=== PATIENT | female | born 1980 | race African-American/Black ===

== ENCOUNTER 2017-07-04 13:16 | Emergency (ER) | payer SELFPAY ==
--- NOTE | 2017-07-04 14:28 | ER ---
Nurse's Notes [facility] Name: Jose E Burden Age: 36 yrs Sex: Female : 1980 Arrival Date: 07/04/2017 Time: 13:21 Bed 27 Private MD: Diagnosis: Presentation: 07/04 13:47 Presenting complaint: Patient states: i was D/C'd from [facility] for a suicidal hj treatment and schizophrenia; now i feel dizzy; denies nausea and vomiting;. Transition of care: patient was not received from another setting of care. Onset of symptoms was July 04, 2017. Initial Sepsis Screen: Does the patient meet any 2 criteria? No. Patient's initial sepsis screen is negative. Does the patient have a suspected source of infection? No. Patient's initial sepsis screen is negative. Care prior to arrival: None. 13:47 Method Of Arrival: Ambulatory 13:47 Acuity: FANTA 3 hj Triage Assessment: 13:49 General: Appears in no apparent distress. uncomfortable, Behavior is calm, cooperative, hj appropriate for age. Pain: Denies pain. GI: No signs and/or symptoms were reported involving the gastrointestinal system. 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 Denies injuries from another. Nutritional lk1 screening: No deficits noted. Tuberculosis screening: No symptoms or risk factors identified. Fall Risk None identified. Assessment: 13:49 GI: Bowel sounds present X 4 quads. Abd is soft and non tender. hj 14:23 Reassessment: Patient refused treatment stating she thought she was feeling bad because lk1 of the medications she got at another facility and left AMA without signing forms. Vital Signs: 13:49 BP 98 / 75; Pulse 115; Resp 18; Temp 97.8(TE); Pulse Ox 98% on R/A; Weight 108.86 kg; hj Height 5 ft. 2 in. (157.48 cm); Pain 0/10; 13:49 Body Mass Index 43.90 (108.86 kg, 157.48 cm) ED Course: 13:21 Patient arrived in ED. mr 13:48 Triage completed. hj 13:49 Arm band placed on left wrist. 13:53 Ziggy Byrne PA is PHCP. 13:53 Cedrick Patel MD is Attending Physician. cp 14:00 Nydia Taveras, RN is Primary Nurse. lk1 14:26 Patient has correct armband on for positive identification. Bed in low position. Call lk1 light in reach. 14:26 No provider procedures requiring assistance completed. Patient did not have IV access lk1 during this emergency room visit. Administered Medications: No medications were administered Outcome: 14:26 AMA Left before signing form. lk1 14:26 unknown 14:26 Discharge instructions given to patient, Instructed on follow up and referral plans. 14:28 Patient left the ED. lk1 Signatures: Telma Alva mr DuffyBashir RN RN Ziggy Byrne PA PA cp Nydia Taveras, RN RN lk1 Corrections: (The following items were deleted from the chart) 13:52 13:49 Pulse 115bpm; Resp 18bpm; Pulse Ox 98% RA; Temp 97.8F Temporal; 108.86 kg; Height hj 5 ft. 2 in.; BMI: 43.9; Pain 0/10; hj
--- NOTE | 2017-07-04 14:28 | EDPHYS ---
Physician Documentation [facility] Name: Jose E Burden Age: 36 yrs Sex: Female : 1980 Arrival Date: 07/04/2017 Time: 13:21 Bed 27 Private MD: ED Physician Cedrick Patel HPI: 07/04 14:00 This 36 yrs old Black Female presents to ER via Ambulatory with complaints of cp Dizziness, Abdominal Pain. 14:00 The patient presents with drowsiness. Onset: The symptoms/episode began/occurred today. cp Associated signs and symptoms: Pertinent positives: abdominal pain yesterday, denies current abdominal pain. Patient's baseline: Neuro: alert and fully oriented, Motor: no deficits, Ambulation: walks without assistance, Speech: normal. Patient reports recent release from [facility]. Given injection of Invega medication prior to release. 14:00 Patient states she was released this morning from [facility]. 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 cp 14:05 Eyes: Negative for injury, pain, redness, and discharge. cp 14:05 ENT: Negative for drainage from ear(s), ear pain, sore throat, difficulty swallowing, difficulty handling secretions. 14:05 Neck: Negative for pain with movement, pain at rest, stiffness. 14:05 Cardiovascular: Negative for chest pain, edema, palpitations. 14:05 Respiratory: Negative for cough, shortness of breath, wheezing. 14:05 Abdomen/GI: Negative for abdominal pain, nausea, vomiting, and diarrhea, constipation, anorexia, black/tarry stool, rectal bleeding. 14:05 Back: Negative for pain at rest, pain with movement. 14:05 : Negative for urinary symptoms, vaginal bleeding, vaginal discharge. 14:05 Skin: Negative for cellulitis, rash. 14:05 Neuro: Positive for dizziness, Negative for altered mental status, headache, speech changes, weakness. 14:05 All other systems are negative. Exam: 14:10 Head/Face: Normocephalic, atraumatic. cp 14:10 Constitutional: The patient appears in no acute distress, alert, awake, non-diaphoretic, non-toxic, well developed, well nourished, unkempt. 14:10 Eyes: Periorbital structures: appear normal, Pupils: equal, round, and reactive to light and accomodation, Extraocular movements: intact throughout, Conjunctiva: exudate, injected, Lids and lashes: appear normal, bilaterally. 14:10 ENT: External ear(s): are unremarkable, Ear canal(s): are normal, clear, TM's: bulging, is not appreciated, bilaterally, dullness, bilaterally, erythema, is not appreciated, bilaterally, Nose: is normal, Mouth: Lips: moist, Oral mucosa: pink and intact, moist, Voice: is normal. 14:10 Neck: ROM/movement: is normal, is supple, without pain, no range of motions limitations, no meningismus, no nuchal rigidity. 14:10 Chest/axilla: Inspection: normal, Palpation: is normal, no crepitus, no tenderness. 14:10 Cardiovascular: Rate: tachycardic, Rhythm: regular. 14:10 Respiratory: the patient does not display signs of respiratory distress, Respirations: normal, no use of accessory muscles, no retractions, no splinting, no tachypnea, labored breathing, is not present, Breath sounds: are clear throughout, no decreased breath sounds, rhonchi, no stridor. 14:10 Abdomen/GI: Inspection: obese Bowel sounds: normal, Palpation: abdomen is soft and non-tender, in all quadrants. 14:10 Back: pain, is absent, ROM is normal. 14:10 Skin: cellulitis, is not appreciated, no rash present. 14:10 Neuro: Orientation: to person, place, time \T\ situation. Mentation: is normal, Cerebellar function: is grossly normal, Motor: moves all fours, strength is normal, Sensation: no obvious gross deficits. Vital Signs: 13:49 BP 98 / 75; Pulse 115; Resp 18; Temp 97.8(TE); Pulse Ox 98% on R/A; Weight 108.86 kg; hj Height 5 ft. 2 in. (157.48 cm); Pain 0/10; 13:49 Body Mass Index 43.90 (108.86 kg, 157.48 cm) MDM: 13:53 Patient medically screened. cp 07/04 14:26 Order name: Urine Dipstick--Ancillary (enter results); Complete Time: 01:20 ag 07/04 14:26 Order name: Urine --Ancillary (enter results) ag 07/04 14:09 Order name: Urine Dipstick-Ancillary (obtain specimen); Complete Time: 14:22 cp 07/04 14:09 Order name: Urine Test (obtain specimen); Complete Time: 14:22 cp Administered Medications: No medications were administered Disposition: 07/05 07:09 Co-signature as Attending Physician, Cedrick Patel MD I agree with the assessment and wa plan of care. Disposition: 07/04/17 14:27 Patient has left against medical advice. - Patients states they are going to Home. - Condition is Undetermined. Signatures: Dispatcher [employer] EDMS Bashir Duffy RN RN Ziggy Byrne PA PA cp Kluge, Leah, RN RN lk1 Cedrick Patel MD MD wa Corrections: (The following items were deleted from the chart) 07/04 14:23 14:02 Orthostatics ordered. cp lk1 14: 14:02 EKG - Nurse/Tech ordered. cp lk1 14:28 14:27 07/04/2017 14:27 Patients has left against medical advice. Patient states they lk1 are going to Home. Condition is Undetermined. lk1
[2017-07-04 15:04] LABS: Urine Blood 3+ (NEG); Urine Glucose NEGATIVE (NEG); Urine Protein TRACE (NEG); Urine pH 5.5 (5.0-7.0)
== END 2017-07-04 14:28 | disposition left against medical advice (07) ==
LOC: ER 13:16
DX: Z53.21 Procedure and treatment not carried out due to patient leaving prior to being seen by health care provider (principal); R42 Dizziness and giddiness; R10.9 Unspecified abdominal pain
CPT/HCPCS: 81003; 81025; 99281

== ENCOUNTER 2017-07-09 11:30 | Emergency (ER) | payer SELFPAY ==
--- OUTSIDE RECORDS SUMMARY | 2017-07-09 11:33 | XMS REPORT | Clinical Summary ---
:1980 Author Organization [facility] Address [address] [place] [address] Care Team Providers Name Role Phone Asked, No Pcp Primary Care Provider Unavailable Allergies Active Allergy Reactions Severity Noted Date Comments Ibuprofen 05/29/2017 Current Medications Prescription Sig. Disp. Refills Start Date End Date Status doxazosin (CARDURA) 2 MG Take 1 tablet 30 tablet 0 06/04/2017 tabletIndications: (2 mg total) 8 Hypertension by mouth nightly for 30 days. atorvastatin (LIPITOR) 10 Take 1 tablet 30 tablet 0 06/04/2017 MG tabletIndications: (10 mg total) 8 Hypercholesterolemia by mouth nightly for 30 days. risperiDONE (RisperDAL) 1 Take 1 tablet 60 tablet 0 06/04/2017 MG tabletIndications: (1 mg total) 8 possible psychosis by mouth 2 (two) times a day for 30 days. cephalexin (KEFLEX) 500 MG Take 1 32 capsule 0 06/04/2017 capsuleIndications: capsule (500 8 infection mg total) by mouth 2 (two) times a day for 16 days. sertraline (ZOLOFT) 50 MG Take 1 tablet 30 tablet 0 06/05/2017 tabletIndications: Anxiety (50 mg total) 8 with Depression by mouth daily for 30 days. traZODone (DESYREL) 50 MG Take 1 tablet 30 tablet 0 06/04/2017 tabletIndications: (50 mg total) 8 insomnia associated with by mouth depression nightly for 30 days. nicotine (NICODERM CQ) 21 Place 1 patch 30 patch 0 06/04/2017 mg/24 hrIndications: on the skin 8 Smoking Cessation daily as needed (Cravings) for up to 30 days. Active Problems Problem Noted Date Cocaine abuse 05/29/2017 Encounters Date Type Specialty Care Team Description 05/29/2017 - Hospital Encounter Psychiatry Nola Snyder, 06/05/2017 Deondre Chu MD 05/29/2017 Emergency Emergency Medicine after 2016 Social History Tobacco Use Types Packs/Day Years Used Date Current Every Day Smoker Cigarettes 10 Smokeless Tobacco: Never Used Tobacco Cessation: Ready to Quit: Yes; Counseling Given: Yes Alcohol Use Drinks/Week oz/Week Comments Yes Sex Assigned at Date Recorded Not on file Last Filed Vital Signs Vital Sign Reading Time Taken Blood Pressure 110/75 06/05/2017 5:44 AM CDT Pulse 82 06/05/2017 5:44 AM CDT Temperature 36.7 C (98 F) 06/05/2017 5:44 AM CDT Respiratory Rate 18 06/04/2017 7:16 PM CDT Oxygen Saturation 98% 06/05/2017 5:44 AM CDT Inhaled Oxygen Concentration - - Weight 113 kg (248 lb 11.2 oz) 06/05/2017 5:44 AM CDT Height 157.5 cm (5' 2") 05/31/2017 1:00 AM CDT Body Mass Index 45.49 06/05/2017 5:44 AM CDT Plan of Treatment Not on file Results ECG 12 lead (05/30/2017 7:43 AM) Component Value Ref Range Ventricular rate 94 Atrial rate 94 SC interval 168 QRSD interval 78 QT interval 360 QTC interval 450 P axis 1 66 QRS axis 1 11 T wave axis 25 EKG impression Normal sinus rhythm-Cannot rule out Anterior infarct , age undetermined-Abnormal ECG-No previous ECGs available- Specimen Performing Laboratory [facility] [place] [place] [address] [place] [address] Hemoglobin A1c (05/29/2017 10:46 PM) Component Value Ref Range Hemoglobin A1C 5.2 4.0 - 5.6 % Comment: HbA1c cutoffs for diagnosing diabetes: 4.0% - 5.6%=normal 5.7% - 6.4%=increased risk for diabetes (prediabetes) >=6.5%=diabetes Goals for glycemic control (ADA 2016) < 7.0%Target for non adults with diabetes. More or less stringent targets may be appropriate for individual patients. <7.5% Target for Children and adolescents with type 1 diabetes. Specimen Performing Laboratory Blood [facility] OF [facility]OLOGY [facility] GENOMIC MEDICINE [address] [place] [id number] Lipid panel (05/29/2017 10:09 PM) Component Value Ref Range Cholesterol 156 <200 mg/dL Triglycerides 73 <150 mg/dL HDL cholesterol 56 >40 mg/dL LDL cholesterol 94Comment: Result obtained by direct LDL <100 mg/dL measurement Lipid panel interpretation SeeBelow Comment: Total Cholesterol (mg/dL) <200 Desirable 222-299Yvgwnlxghe-seif >=240High Triglycerides (mg/dL) <150 Normal 796-581Sbmtbgeamp-rvyk 200-499High >=500Very high HDL Cholesterol (mg/dL) <40Low (male) <40Low (female) LDL Cholesterol (mg/dL) <100 Optimal 100-129Near or above optimal 402-112Xvvmwsfcdn-iqak 160-189High >=190Very high Risk Catergories that modify LDL goals. Risk CatergoriesLDL goal (mg/dL) CHD and CHD risk equivalent<100 (10-year risk >20%) Multiple (2+) risk factors <130 (10-year risk=<20%) 0-1 risk factors <160 (<10-year risk) Defining levels of lipids in metabolic syndrome Triglycerides>=150 mg/dL HDL Cholesterol Men<40 mg/dL Women<40 mg/dL Non-HDL cholesterol is a second target for therapy in persons with high triglycerides (>=200 mg/dL) Specimen Performing Laboratory Plasma specimen [facility] OF PATHOLOGY AND GENOMIC MEDICINE [address] [place] [phone] after 2016 Insurance Payer Benefit Plan / Group Subscriber ID Type Phone Address PENDING MEDICAID PENDING DISABILITY MEDICAID xxxxxxxxx Medicaid COVERAGE
--- OUTSIDE RECORDS SUMMARY | 2017-07-09 11:33 | XMS REPORT ---
:1980 Author Organization [facility] Address [address] [place] [address] [address] [place] [address] Care Team Providers Name Role Phone UNKNOWN, REFFERING Primary Care Provider Unavailable MARITZA CAVAZOS M.D. Unavailable Unavailable Problems This patient has no known problems. Allergies, Adverse Reactions, Alerts This patient has no known allergies or adverse reactions. Medications This patient has no known medications. Encounters Start End Encounter Admission Attending Care Care Encounter Date/Time Date/Time Type Type Clinicians Facility Department ID 2017-06-27 2017-06-27 [id number]:45:00 00:45:00 Yimi SALAS 2017-05-04 2017-05-22 [facility] [id number] 02:55:00 13:21:00 Yimi SALAS Results Test Description Test Time Test Comments Text Results Atomic Results Result Comments RPR, Qual 2017-06-29 03:23:00 Test Item Value Reference Range Comments RPR (test code=RPR) Non-Reactive Non-Reactive Urinalysis [id number] 02:28:00 Test Item Value Reference Range Comments Color (test code=COLOR) Yellow Yellow,Straw,Pl yellow Clarity (test code=CLAR) Clear Clear Specific [place] (test code=SPGR) 1.013 1.001-1.035 pH (test code=PH) 6.5 5.0-9.0 Ketone (test code=KET) Negative mg/dL Negative Glucose (test code=GLUCUR) Negative mg/dL Negative Protein (test code=PROT) Negative mg/dL Negative Bilirubin (test code=BILI) Negative mg/dL Negative Occult Blood (test code=UDOB) Negative Negative Urobilinogen (test code=UROB) 0.2 mg/dL 0.2-1.0 Nitrite (test code=NIT) Negative Negative Leuk Esterase (test code=LEUK) Small Negative Micros Exam (test code=MEXAM) Indicated Epithelial Cells (test code=EPI) 30-49 /LPF 0-30 WBC, Urine (test code=UWBC) 0-1 /HPF 0-5 RBC, Urine (test code=URBC) None Seen /HPF 0-5 Bacteria (test code=BACT) Few /HPF Comprehensive Metabolic [id number] 02:24:00 Test Item Value Reference Range Comments Sodium (test code=NA) 136 mmol/L 135-145 Potassium (test code=K) 4.4 mmol/L 3.5-5.1 Chloride (test code=CL) 98 mmol/L 98-105 Carbon Dioxide (test 26 mmol/L 22-29 code=CO2) Glucose (test code=GLU) 117 mg/dL 70-115 Blood Urea Nitrogen 13 mg/dL 6-20 (test code=BUN) Creatinine (test 1.0 mg/dL 0.5-0.9 code=CREAT) Calcium (test code=CA) 8.9 mg/dL 8.3-10.5 Prot Total (test 6.9 g/dL 6.4-8.3 code=TP) Albumin (test code=ALB) 4.0 g/dL 3.5-5.2 A/G Ratio (test 1.4 Ratio code=AGRATIO) Globulin (test 2.9 2.9-3.1 code=GLOB) Bili Total (test 0.2 mg/dL 0.1-0.9 code=TBIL) Alk Phos (test 106 U/L 35-104 code=APHOS) AST (test code=AST) 17 U/L 1-32 ALT (test code=ALT) 13 U/L 1-33 BUN/Creatinine Ratio 13.0 (test code=BCRATIO) Anion Gap (test 12 mmol/L 7-16 code=AGAP) Estimated GFR (test >60 mL/min/1.73m2 eGFR (estimated Glomerular code=GFR) Filtration Rate) is an estimated value,calculated from the patient's serum creatinine using the MDRD equation.It is NOT the patient's actual GFR. The eGFR provides a more clinicallyuseful measure of kidney disease than serum creatinine alone.This calculation takes sex and race into account, if the informationis provided. If the race is not provided, and the patient isAfrican-Mauritanian, multiply by 1.212. If sex is not provided, and thepatient is female, multiply by 0.742. Results for patients <18 years ofage have not been validated by the MDRD study and should be interpretedwith caution.eGFR Result Interpretation:eGFR > or=60 is in the Normal RangeeGFR < 60 may mean kidney diseaseeGFR < 15 may mean kidney failureRanges recommended by the National Kidney Foundation,http://nkdep.nih .gov [id number] 02:02:00 Test Item Value Reference Range Comments Amphetamine (test code=AMPH) Negative Negative For diagnostic purposes only, positive results should always be assessedin conjunctionwith the patient's medical history,clinical examination and otherfindings.To fulfill legal requirements, a more specific alternate chemical methodmust be used inorder to obtain a Confirmed analytical result. GC/MS is the preferred confirmatory method. Barbiturates (test code=LUKAS) Negative Negative Benzodiazepine (test Negative Negative code=ANTON) Cocaine (test code=COCA) POSITIVE Negative Methadone (test code=MTHD) Negative Negative Opiates (test code=OPIA) Negative Negative PCP (test code=PCP) Negative Negative Propoxyphene (test Negative Negative code=PROPOX) THC (test code=THC) Negative Negative Alcohol, Urine (test <0.01 g/dL 0.00-0.01 code=ETOHU) CBC with [id number] 01:52:00 Test Item Value Reference Range Comments WBC (test code=WBC) 8.7 K/cumm 4.4-10.5 RBC (test code=RBC) 4.24 M/cumm 3.75-5.20 Hemoglobin (test code=HGB) 12.3 gm/dL 12.2-14.8 Hematocrit (test code=HCT) 39.7 % 36.5-44.4 MCV (test code=MCV) 93.5 fL 80-100 MCH (test code=MCH) 29.1 pg 27.0-32.5 MCHC (test code=MCHC) 31.1 g/dL 32.0-37.5 RDW (test code=RDW) 14.3 % 11.5-14.5 Platelet Count (test code=PLTCT) 275 K/cumm 140-440 MPV (test code=MPV) 10.2 fL Diff Method (test code=DIFFM) Auto Neutrophil (test code=NEUT) 65.7 % 36-70 Lymphocyte (test code=LYMPH) 27.6 % 12-44 Monocyte (test code=MONO) 3.1 % 0-11 Eosinophil (test code=EOS) 3.3 % 0-7 Basophil (test code=BASO) 0.5 % 0-2 Neutro Abs (test code=ANEUT) 5.7 K/cumm 1.6-7.4 Lymph Abs (test code=ALYMPH) 2.4 K/cumm 0.5-4.6 [place] Abs (test code=AMONO) 0.3 K/cumm 0.0-1.2 Eos Abs (test code=AEOS) 0.29 K/cumm 0.00-0.74 Baso Abs (test code=ABASO) 0.0 K/cumm 0.00-0.21 RPR, [id number] 03:10:00 Test Item Value Reference Range Comments RPR (test code=RPR) Non-Reactive Non-Reactive Urinalysis [id number] 11:22:00 Test Item Value Reference Range Comments Color (test code=COLOR) Yellow Yellow,Straw,Pl yellow Clarity (test code=CLAR) Clear Clear Specific [place] (test code=SPGR) 1.016 1.001-1.035 pH (test code=PH) 5.0 5.0-9.0 Ketone (test code=KET) Negative mg/dL Negative Glucose (test code=GLUCUR) Negative mg/dL Negative Protein (test code=PROT) Negative mg/dL Negative Bilirubin (test code=BILI) Negative mg/dL Negative Occult Blood (test code=UDOB) Negative Negative Urobilinogen (test code=UROB) 0.2 mg/dL 0.2-1.0 Nitrite (test code=NIT) Negative Negative Leuk Esterase (test code=LEUK) Negative Negative Micros Exam (test code=MEXAM) Not indicated BHCG, Serum, [id number] 10:27:00 Test Item Value Reference Range Comments Preg Qual [Se] (test code=BSHCG) Negative Negative Lipid [id number] 10:05:00 Test Item Value Reference Range Comments Cholesterol (test 167 mg/dL 0-200 code=CHOL) Triglycerides (test 46 mg/dL 9-200 code=TRIG) HDL (test code=HDL) 65 mg/dL 50-60 Chol/HDL (test 2.6 Ratio 0.0-4.4 code=CHOLPHDL) LDL, Calculated (test 93 0-130 (NOTE)RISK OF HEART code=LDLC) DISEASEPublished by [place] Heart AssociationAnalyte Optimal Boderline Increased RiskCHOL <200 200-239 >240TRIG <150 150-199 >200HDL Male: >60 <40HDL Female: >60 <50LDL <100 130-159 >160LDL NEAR OPTIMAL IS 100-129 VLDL (test code=VLDL) 9 mg/dL 5-40 LDL/HDL (test code=LDLPHDL) 1 RPR, [id number] 10:46:00 Test Item Value Reference Range Comments RPR (test code=RPR) Non-Reactive Non-Reactive Thyroid Stimulating Hormone (TSH)2017-05-04 07:15:00 Test Item Value Reference Range Comments TSH (test code=TSH) 1.04 mIU/mL 0.270-4.200 Lipid [id number] 07:07:00 Test Item Value Reference Range Comments Cholesterol (test 132 mg/dL 0-200 code=CHOL) Triglycerides (test 59 mg/dL 9-200 code=TRIG) HDL (test code=HDL) 61 mg/dL 50-60 Chol/HDL (test 2.2 Ratio 0.0-4.4 code=CHOLPHDL) LDL, Calculated (test 59 0-130 (NOTE)RISK OF HEART code=LDLC) DISEASEPublished by [place] Heart AssociationAnalyte Optimal Boderline Increased RiskCHOL <200 200-239 >240TRIG <150 150-199 >200HDL Male: >60 <40HDL Female: >60 <50LDL <100 130-159 >160LDL NEAR OPTIMAL IS 100-129 VLDL (test code=VLDL) 12 mg/dL 5-40 LDL/HDL (test code=LDLPHDL) 1 POC Glucose, [id number] 04:42:00 Test Item Value Reference Range Comments POC Glucose (test 84 mg/dL 70-115 If you consider your patient code=POCGLUC) critically ill, the Alisa Accu-Chek InformII metershould not be used for Glucose determinations.Draw a venous Glucose and send to the Main Lab for Analysis.
[2017-07-09] MEDS ORDERED: ONDANSETRON 4 MG/2 ML VIAL ONE (12:14)
[2017-07-09] MEDS ORDERED: NA CHLORIDE 0.9% 1,000 ML ONE (12:14)
[2017-07-09 12:28] LABS: Absolute Lymphocytes (CBC) 2.5 K/uL (0.7-4.9); Absolute Monocytes 0.5 K/uL (0.1-1.3); Absolute Neutrophil 3.3 K/uL (1.8-8.0); Eosinophils % 4.5 % (0-4.4); Hematocrit 36.1 % (36.0-45.0); Lymphocytes % 36.7 % (15.3-44.8); MCH 29.6 pg (27.0-35.0); MCV 92.1 fL (80-100); RBC Red Blood Cell Count 3.92 M/uL (3.86-4.86)
[2017-07-09 12:31] LABS: Bicarbonate 26 mEq/L (21-31); Glucose Level 87 mg/dL (65-120); Lipase 16 U/L (22-51); Potassium 4.2 mEq/L (3.6-5.0); Sodium Level 137 mEq/L (135-145)
[2017-07-09 12:37] LABS: ALT/SGPT 15 IU/L (10-60); AST/SGOT 18 IU/L (10-42); Albumin 3.2 g/dL (3.2-5.5); Alkaline Phosphatase 92 IU/L (42-121); Amylase Level 108 U/L (28-100); BUN Blood Urea Nitrogen 13 mg/dL (6-20); Bilirubin Direct < 0.1 mg/dL (0-0.2); Bilirubin Total 0.2 mg/dL (0.3-1.2); Protein, Total 6.6 g/dL (6.0-8.3)
[2017-07-09 13:13] LABS: Urine Blood TRACE (NEG); Urine Glucose NEGATIVE (NEG); Urine Protein NEGATIVE (NEG); Urine pH 5.5 (5.0-7.0)
--- NOTE | 2017-07-09 13:48 | EDPHYS ---
Physician Documentation [facility] Name: Jose E Burden Age: 37 yrs Sex: Female : 1980 Arrival Date: 07/09/2017 Time: 11:33 Bed 24 Private MD: ED Physician Ziggy Hou HPI: 07/09 11:42 This 37 yrs old Black Female presents to ER via EMS with complaints of Abdominal Pain. cp 07/08 11:42 Onset: The symptoms/episode began/occurred 2 day(s) ago. cp 11:42 The symptoms do not radiate. Associated signs and symptoms: Pertinent positives: nausea cp and vomiting, diarrhea, Pertinent negatives: blood in stools, constipation, dysuria, fever, headache, vaginal discharge. 07/09 11:42 The patient presents with abdominal pain in the left lower quadrant. 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 - Social history:: Smoking status: Patient uses tobacco products, smokes one-half pack cigarettes per day. ROS: 11:55 Constitutional: Negative for body aches, chills, fever, poor PO intake. cp 11:55 Eyes: Negative for injury, pain, redness, and discharge. cp 11:55 ENT: Negative for drainage from ear(s), ear pain, sore throat, difficulty swallowing, difficulty handling secretions. 11:55 Cardiovascular: Negative for chest pain, edema, palpitations. 11:55 Respiratory: Negative for cough, shortness of breath, wheezing. 11:55 Abdomen/GI: Positive for abdominal pain, of the left lower quadrant, Negative for diarrhea, constipation, anorexia, black/tarry stool, rectal bleeding. 11:55 Back: Negative for pain at rest, pain with movement, radiated pain. 11:55 : Negative for urinary symptoms, flank pain, vaginal bleeding, vaginal discharge. 11:55 Skin: Negative for cellulitis, rash. 11:55 Neuro: Negative for altered mental status, headache, weakness. 11:55 All other systems are negative. Exam: 12:00 Constitutional: The patient appears in no acute distress, alert, awake, non-toxic, well cp developed, well nourished. 12:00 Head/Face: Normocephalic, atraumatic. cp 12:00 Eyes: Periorbital structures: appear normal, Conjunctiva: normal, no exudate, no injection, Sclera: no appreciated abnormality, Lids and lashes: appear normal, bilaterally. 12:00 ENT: External ear(s): are unremarkable, Nose: is normal, Mouth: Lips: moist, Oral mucosa: pink and intact, moist, Posterior pharynx: is normal, airway is patent, no erythema, no exudate. 12:00 Neck: ROM/movement: is normal, is supple, without pain, no range of motions limitations, no nuchal rigidity. 12:00 Chest/axilla: Inspection: normal, Palpation: is normal, no crepitus, no tenderness. 12:00 Cardiovascular: Rate: tachycardic, Rhythm: regular. 12:00 Respiratory: the patient does not display signs of respiratory distress, Respirations: normal, no use of accessory muscles, no retractions, no splinting, no tachypnea, labored breathing, is not present, Breath sounds: are clear throughout, no decreased breath sounds, no stridor, no wheezing. 12:00 Abdomen/GI: Inspection: abdomen appears normal, Bowel sounds: active, all quadrants, Palpation: soft, in all quadrants, mild abdominal tenderness, rebound tenderness, is not appreciated, voluntary guarding, is not appreciated, involuntary guarding, is not appreciated. 12:00 Back: CVA tenderness, is absent. 12:00 Skin: cellulitis, is not appreciated, no rash present. Vital Signs: 11:40 BP 110 / 59; Pulse 101; Resp 18; Temp 98.2(O); Pulse Ox 99% on R/A; Weight 108.86 kg; aj1 Height 5 ft. 2 in. (157.48 cm); Pain 7/10; 13:46 BP 122 / 65; Pulse 88; Resp 18; Pulse Ox 99% ; aj1 11:40 Body Mass Index 43.90 (108.86 kg, 157.48 cm) aj1 MDM: 11:35 Patient medically screened. cp 13:43 Data reviewed: vital signs, nurses notes, lab test result(s). cp 13:43 Differential diagnosis: diverticulitis, gastritis, Ovarian Torsion, Pelvic Inflammatory cp Disease, Pyelonephritis, Ureterolithiasis, urinary tract infection. 13:44 Refusal of service: The patient/guardian displays adequate decision making capability and despite a detailed discussion of alternatives, benefits, risks, and consequences refuses: to wait for results of CT abdomen/pelvis. Patient understands risk if CT results are positive for acute abdomen. Requests to be notified at [facility]. 07/09 11:45 Order name: Amylase, Serum; Complete Time: 13:19 cp 07/09 11:45 Order name: Basic Metabolic Panel; Complete Time: 13:19 cp 07/09 11:45 Order name: CBC with Diff; Complete Time: 12:32 cp 07/09 12:33 Interpretation: Normal except: HGB 11.6; EOSINOPHIL % 4.5. cp 07/09 11:45 Order name: Creatinine for Radiology; Complete Time: 12:32 cp 07/09 11:45 Order name: Hepatic Function; Complete Time: 13:19 cp 07/09 11:45 Order name: Lipase; Complete Time: 13:19 cp 07/09 12:33 Interpretation: LIP 16; Reviewed. 07/09 11:45 Order name: Urine Test (obtain specimen); Complete Time: 13:29 cp 07/09 11:45 Order name: Urine Microscopic Only; Complete Time: 20:09 cp 07/09 11:45 Order name: IV Saline Lock; Complete Time: 12:20 cp 07/09 11:45 Order name: CT Abd/Pelvis - W/Contrast: no oral contrast; Complete Time: 20:09 cp 07/09 12:46 Order name: Urine Dipstick--Ancillary (enter results); Complete Time: 13:19 ag 07/09 12:46 Order name: Urine --Ancillary (enter results); Complete Time: 13:19 ag 07/09 11:45 Order name: Labs collected and sent; Complete Time: 12:20 cp 07/09 11:45 Order name: Urine Dipstick-Ancillary (obtain specimen); Complete Time: 13:29 cp Administered Medications: 12:20 Drug: Zofran 4 mg Route: IVP; Site: right antecubital; aj1 12:20 Drug: NS 0.9% 1000 ml Route: IV; Rate: 1 bolus; Site: right antecubital; aj1 Disposition: 07/10 07:01 Co-signature as Attending Physician, Ziggy Hou MD I agree with the assessment and jorge luis plan of care. Disposition: 07/09/17 13:47 Patient has left against medical advice. Impression: Lower abdominal pain, unspecified. - Patients states they are going to Home. - Condition is Stable. Follow up: Emergency Department; When: As needed; Reason: Worsening of condition. - Problem is new. - Symptoms have improved. Signatures: Dispatcher [employer] EDJane Elliott, HERMES RN aj1 Ziggy Hou MD MD cha Gallardo, Ana ag Page, Corey, PA PA cp Corrections: (The following items were deleted from the chart) 07/09 13:55 13:47 07/09/2017 13:47 Patients has left against medical advice. Impression: Lower ag abdominal pain, unspecified. Patient states they are going to Home. Condition is Stable. Follow up: Emergency Department; When: As needed; Reason: Worsening of condition. Problem is new. Symptoms have improved. cp
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
[2017-07-09 13:55] LABS: Urine Bacteria <20 /HPF (<20); Urine Culture Reflex Order NOT NEEDED; Urine RBC <5 /HPF (NONE SEEN); Urine Yeast FEW (NONE SEEN)
--- NOTE | 2017-07-09 14:06 | RAD REPORT ---
EXAM DESCRIPTION: CT - Abdomen Pelvis W Contrast - 07/09/2017 1:06 pm CLINICAL HISTORY: Abdominal pain/left lower quadrant pain with vomiting and diarrhea COMPARISON: none. TECHNIQUE: Computed axial tomography of the abdomen pelvis was obtained. 100 cc Isovue-300 was admin istered intravenously. Oral contrast was not requested which limits evaluation of bowel. All CT scans are performed using dose optimization technique as appropriate and may include automated exposure control or mA/KV adjustment according to patient size. FINDINGS: The liver is a 6 millimeter low-density areas present within the right lobe of the liver . Spleen, pancreas, adrenal and kidneys appear unremarkable. There is no evidence of diverticulitis. The appendix is normal An adnexal mass is not seen IMPRESSION: A 6 millimeter low-density area within the liver is nonspecific. Most likely it is benig n. Follow up ultrasound in 3 months would be helpful for re-evaluation
== END 2017-07-09 13:55 | disposition left against medical advice (07) ==
LOC: ER 11:30
DX: R10.32 Left lower quadrant pain (principal); I10 Essential (primary) hypertension; E11.9 Type 2 diabetes mellitus without complications; F20.9 Schizophrenia, unspecified; F17.210 Nicotine dependence, cigarettes, uncomplicated; Z88.8 Allergy status to other drugs, medicaments and biological substances
CPT/HCPCS: 36415; 74177; 80048; 80076; 81003; 81015; 81025; 82150; 83690; 85025; 96374; 99284; J2405; J7030; Q9967

== ENCOUNTER 2017-10-24 18:17 | Emergency (ER) | payer SELFPAY ==
--- OUTSIDE RECORDS SUMMARY | 2017-10-24 18:19 | XMS REPORT | Clinical Summary ---
:1980 Author Organization [facility] Address [address] [place] [address] Care Team Providers Name Role Phone Asked, [...] Chu MD 05/29/2017 Emergency Emergency Medicine after 10/23/2016 Social History Tobacco Use Types Packs/Day Years [...] CDT Plan of Treatment Not on file Procedures Procedure Name Priority Date/Time Associated Diagnosis Comments ECG 12-LEAD STAT 05/30/2017 7:43 AM Results for this CDT procedure are in the results section. HEMOGLOBIN A1C Routine 05/29/2017 10:46 PM Results for this CDT procedure are in the results section. LIPID PANEL Routine 05/29/2017 10:09 PM Results for this CDT procedure are in the results section. after 10/23/2016 Results ECG 12 lead (05/30/2017 7:43 AM) Ventricular rate 94 [facility] Atrial rate 94 [facility] NV interval 168 [facility] QRSD interval 78 [facility] QT interval 360 [facility] QTC interval 450 [facility] P axis 1 66 [facility] QRS axis 1 11 [facility] T wave axis 25 [facility] EKG impression Normal sinus rhythm-Cannot rule out Anterior [facility]USE infarct , age undetermined-Abnormal ECG-No previous ECGs available- Performing Organization Address City/State/Zipcode Phone Number [facility] MUSE [address] [place] [address] Hemoglobin A1c (05/29/2017 10:46 PM) Hemoglobin A1C 5.2 4.0 - 5.6 % [facility] DEPARTMENT OF PATHOLOGY Comment: AND GENOMIC MEDICINE HbA1c cutoffs for diagnosing diabetes: 4.0% - 5.6%=normal 5.7% - 6.4%=increased risk for diabetes (prediabetes) >=6.5%=diabetes Goals for glycemic control (ADA 2016) < 7.0%Target for non adults with diabetes. More or less stringent targets may be appropriate for individual patients. <7.5% Target for Children and adolescents with type 1 diabetes. Specimen Blood Performing Organization Address City/[facility] Phone Number [facility] DEPARTMENT OF PATHOLOGY AND [address] [place] [phone] GENOMIC MEDICINE Lipid panel (05/29/2017 10:09 PM) Cholesterol 156 <200 mg/dL [facility] DEPARTMENT OF PATHOLOGY AND GENOMIC MEDICINE Triglycerides 73 <150 mg/dL [facility] DEPARTMENT OF PATHOLOGY AND GENOMIC MEDICINE HDL cholesterol 56 >40 mg/dL [facility] DEPARTMENT OF PATHOLOGY AND GENOMIC MEDICINE LDL cholesterol 94Comment: Result <100 mg/dL [facility] DEPARTMENT OF obtained by direct LDL PATHOLOGY AND GENOMIC measurement MEDICINE Lipid panel interpretation [facility] DEPARTMENT OF Comment: PATHOLOGY AND GENOMIC Total Cholesterol (mg/dL) MEDICINE <200 Desirable 824-223Obuipuzalu-iqyy >=240High Triglycerides (mg/dL) <150 Normal 402-757Gsnvydkmpo-qqgr 200-499High >=500Very high HDL Cholesterol (mg/dL) <40Low (male) <40Low (female) LDL Cholesterol (mg/dL) <100 Optimal 100-129Near or above optimal 601-425Dwoaoxbbjj-dpkc 160-189High >=190Very high Risk Catergories that modify [...] persons with high triglycerides (>=200 mg/dL) Specimen Plasma specimen Performing Organization Address City/State/Zipcode Phone Number [facility] DEPARTMENT OF PATHOLOGY AND [address] [place] [address] GENOMIC MEDICINE after 10/23/2016 Insurance Payer Benefit Plan / Group Subscriber ID Type Phone Address PENDING MEDICAID PENDING DISABILITY MEDICAID xxxxxxxxx [place] [id number]
--- OUTSIDE RECORDS SUMMARY | 2017-10-24 18:19 | XMS REPORT ---
:1980 [facility] Address [address] [place] [address] [address] [place] [address] Care Team Providers Name Role Phone UNKNOWN, [...] Facility Department ID 2017-06-27 2017-06-27 [id number]:00 00:45:00 Yimi SALAS 2017-05-04 2017-05-22 [facility] [id number] 02:55:00 13:21:00 Yimi SALAS Results Test Description Test Time Test Comments Text Results Atomic Results Result Comments RPR, Qual 2017-06-29 03:23:00 Test Item Value Reference Range Comments RPR (test code=RPR) Non-Reactive Non-Reactive Urinalysis [id number] 02:28:00 Test Item Value Reference Range Comments Color (test code=COLOR) Yellow Yellow,Straw,Pl yellow Clarity (test code=CLAR) Clear Clear Specific [place] (test code=SPGR) 1.013 1.001-1.035 pH (test code=PH) [...] Bacteria (test code=BACT) Few /HPF Comprehensive Metabolic [id number] 02:24:00 Test Item Value Reference Range Comments [...] race is not provided, and the patient isAfrican-Iraqi, multiply by 1.212. If sex is not provided, and thepatient is female, multiply by 0.742. Results for patients <18 years ofage have not been validated by the MDRD study and should be interpretedwith caution.eGFR Result Interpretation:eGFR > or=60 is in the Normal RangeeGFR < 60 may mean kidney diseaseeGFR < 15 may mean kidney failureRanges recommended by the National Kidney Foundation,http://nkdep.nih .gov [id number] 02:02:00 Test Item Value Reference Range Comments [...] (test <0.01 g/dL 0.00-0.01 code=ETOHU) CBC with [id number] 01:52:00 Test Item Value Reference Range Comments [...] Lymph Abs (test code=ALYMPH) 2.4 K/cumm 0.5-4.6 [place] Abs (test code=AMONO) 0.3 K/cumm 0.0-1.2 Eos Abs (test code=AEOS) 0.29 K/cumm 0.00-0.74 Baso Abs (test code=ABASO) 0.0 K/cumm 0.00-0.21 RPR, [id number] 03:10:00 Test Item Value Reference Range Comments RPR (test code=RPR) Non-Reactive Non-Reactive Urinalysis [id number] 11:22:00 Test Item Value Reference Range Comments Color (test code=COLOR) Yellow Yellow,Straw,Pl yellow Clarity (test code=CLAR) Clear Clear Specific [place] (test code=SPGR) 1.016 1.001-1.035 pH (test code=PH) [...] Exam (test code=MEXAM) Not indicated BHCG, Serum, [id number] 10:27:00 Test Item Value Reference Range Comments Preg Qual [Se] (test code=BSHCG) Negative Negative Lipid [id number] 10:05:00 Test Item Value Reference Range Comments Cholesterol (test 167 mg/dL 0-200 code=CHOL) Triglycerides (test 46 mg/dL 9-200 code=TRIG) HDL (test code=HDL) 65 mg/dL 50-60 Chol/HDL (test 2.6 Ratio 0.0-4.4 code=CHOLPHDL) LDL, Calculated (test 93 0-130 (NOTE)RISK OF HEART code=LDLC) DISEASEPublished by Iraqi Heart AssociationAnalyte Optimal Boderline Increased RiskCHOL <200 200-239 >240TRIG <150 150-199 >200HDL Male: >60 <40HDL Female: >60 <50LDL <100 130-159 >160LDL NEAR OPTIMAL IS 100-129 VLDL (test code=VLDL) 9 mg/dL 5-40 LDL/HDL (test code=LDLPHDL) 1 RPR, [id number] 10:46:00 Test Item Value Reference Range Comments RPR (test code=RPR) Non-Reactive Non-Reactive Thyroid Stimulating Hormone (TSH)2017-05-04 07:15:00 Test Item Value Reference Range Comments TSH (test code=TSH) 1.04 mIU/mL 0.270-4.200 Lipid [id number] 07:07:00 Test Item Value Reference Range Comments Cholesterol (test 132 mg/dL 0-200 code=CHOL) Triglycerides (test 59 mg/dL 9-200 code=TRIG) HDL (test code=HDL) 61 mg/dL 50-60 Chol/HDL (test 2.2 Ratio 0.0-4.4 code=CHOLPHDL) LDL, Calculated (test 59 0-130 (NOTE)RISK OF HEART code=LDLC) DISEASEPublished by Iraqi Heart AssociationAnalyte Optimal Boderline Increased RiskCHOL <200 200-239 >240TRIG <150 150-199 >200HDL Male: >60 <40HDL Female: >60 <50LDL <100 130-159 >160LDL NEAR OPTIMAL IS 100-129 VLDL (test code=VLDL) 12 mg/dL 5-40 LDL/HDL (test code=LDLPHDL) 1 POC Glucose, [id number] 04:42:00 Test Item Value Reference Range Comments POC Glucose (test 84 mg/dL 70-115 If you consider your patient code=POCGLUC) critically ill, the Alisa Accu-Chek InformII metershould not be used for Glucose determinations.Draw a venous Glucose and send to the Main Lab for Analysis.
[2017-10-24] MEDS ORDERED: LORazepam 2 MG/ML VIAL ONE (19:11)
[2017-10-24] MEDS ORDERED: NA CHLORIDE 0.9% 2,000 ML ONE (19:13)
[2017-10-24 19:21] LABS: Absolute Monocytes 0.6 K/uL (0.1-1.3); Absolute Neutrophil 5.8 K/uL (1.8-8.0); Basophils % 0.6 % (0-1.3); Eosinophils % 0.1 % (0-4.4); Hematocrit 39.1 % (36.0-45.0); Lymphocytes % 24.3 % (15.3-44.8); MCH 29.3 pg (27.0-35.0); MCV 87.7 fL (80-100); MPV 9.4 fL (7.6-11.3); Monocytes % 6.7 % (3.3-12.3); RBC Red Blood Cell Count 4.46 M/uL (3.86-4.86)
[2017-10-24 19:26] LABS: Barbiturates NEGATIVE (NEGATIVE); Benzodiazepines NEGATIVE (NEGATIVE); METHAMPHETAM NEGATIVE (NEGATIVE); Methadone NEGATIVE (NEGATIVE); Opiates NEGATIVE (NEGATIVE); Phencyclidine NEGATIVE (NEGATIVE); THC Cannibis NEGATIVE (NEGATIVE)
[2017-10-24 19:27] LABS: Cocaine POSITIVE (NEGATIVE)
[2017-10-24 19:31] LABS: Protime INR 1.16
[2017-10-24 19:37] LABS: ALT/SGPT 21 U/L (12-78); AST/SGOT 46 U/L (15-37); Albumin 3.4 g/dL (3.4-5.0); Alcohol Serum/Plasma 169 mg/dL (<3); Alkaline Phosphatase 128 U/L (45-117); BUN Blood Urea Nitrogen 12 mg/dL (7-18); Bicarbonate 18 mmol/L (21-32); Bilirubin Direct < 0.1 mg/dL (0-0.2); Bilirubin Total 0.2 mg/dL (0.2-1.0); Glucose Level 100 mg/dL (74-106); Potassium 3.9 mmol/L (3.5-5.1); Protein, Total 8.1 g/dL (6.4-8.2); Sodium Level 136 mmol/L (136-145)
[2017-10-24 20:02] LABS: Urine Blood NEGATIVE (NEG); Urine Glucose NEGATIVE (NEG); Urine Protein NEGATIVE (NEG)
[2017-10-25] MEDS ORDERED: LORAZEPAM 1 MG TABLET ONE ×2 (03:21→13:18)
--- NOTE | 2017-10-25 07:08 | EKG ---
Test Date: 2017-10-24 Test Time: 18:39:31 Decorating Consultant: LEATHA MEASUREMENT RESULTS: Intervals: Rate: 127 CT: 168 QRSD: 74 QT: 276 QTc: 401 Anselmo: P: 59 CT: 168 QRS: 22 T: 18 INTERPRETIVE STATEMENTS: Sinus tachycardia Otherwise normal ECG No previous ECG available for comparison Electronically Signed On 10-25-17 07:07:02 CDT by Kin Driscoll
[2017-10-25] MEDS ORDERED: ACETAMINOPHEN 500 MG TAB ONE (13:19)
--- NOTE | 2017-10-25 16:45 | EDPHYS ---
Physician Documentation [facility] Name: Jose E Burden Age: 37 yrs Sex: Female : 1980 Arrival Date: 10/24/2017 Time: 18:23 Bed 8 Private MD: ED Physician Cedrick Patel HPI: 10/24 19:03 This 37 yrs old Black Female presents to ER via EMS with complaints of Psych Problem. jr8 19:03 The patient presents to the emergency department with psychosis, has experienced jr8 auditory hallucinations, a history of a suicide gesture, suicide ideation. Onset: The symptoms/episode began/occurred gradually, 2 week(s) ago, and became worse and became persistent. Past psychiatric history: Prior diagnosis: bipolar disorder, schizophrenia. Severity of symptoms: At their worst the symptoms were moderate in the emergency department the symptoms are unchanged. The patient has experienced similar episodes in the past, a few times. The patient has not recently seen a physician. Patient stated that she has been off of her medications. Stated that she has been hearing voices that tell her to sleep with her children. Has been feeling suicidal. Stated that she took some medicine that she did not know what it was and tried to run in front of a car. Stated that she needs back on her medications and needs inpatient help . Historical: - Allergies: 18:47 Ibuprofen; jb4 - Home Meds: 18:47 Trazodone Oral [Active]; unknown BP medication [Active]; Vistaril Oral [Active]; Zoloft jb4 Oral [Active]; - PMHx: 18:47 Chronic pain; Diabetes - NIDDM; Hypertension; Schizophrenia; Bipolar disorder; Insomnia;jb4 - Immunization history:: Adult Immunizations unknown. - Social history:: Smoking status: Patient uses tobacco products, denies chronic smoking, but will smoke occasionally, Patient uses alcohol, occasionally. street drugs, cocaine. - Ebola Screening: : No symptoms or risks identified at this time. ROS: 19:03 Eyes: Negative for injury, pain, redness, and discharge, ENT: Negative for injury, jr8 pain, and discharge, Neck: Negative for injury, pain, and swelling, Cardiovascular: Negative for chest pain, palpitations, and edema, Respiratory: Negative for shortness of breath, cough, wheezing, and pleuritic chest pain, Abdomen/GI: Negative for abdominal pain, nausea, vomiting, diarrhea, and constipation, Back: Negative for injury and pain, MS/Extremity: Negative for injury and deformity, Skin: Negative for injury, rash, and discoloration, Neuro: Negative for headache, weakness, numbness, tingling, and seizure. 19:03 Psych: Positive for auditory hallucinations, suicide gesture, suicidal ideation. Exam: 19:03 Eyes: Pupils equal round and reactive to light, extra-ocular motions intact. Lids and jr8 lashes normal. Conjunctiva and sclera are non-icteric and not injected. Cornea within normal limits. Periorbital areas with no swelling, redness, or edema. ENT: Nares patent. No nasal discharge, no septal abnormalities noted. Tympanic membranes are normal and external auditory canals are clear. Oropharynx with no redness, swelling, or masses, exudates, or evidence of obstruction, uvula midline. Mucous membranes moist. Neck: Trachea midline, no thyromegaly or masses palpated, and no cervical lymphadenopathy. Supple, full range of motion without nuchal rigidity, or vertebral point tenderness. No Meningismus. Cardiovascular: Regular rate and rhythm with a normal S1 and S2. No gallops, murmurs, or rubs. Normal PMI, no JVD. No pulse deficits. Respiratory: Lungs have equal breath sounds bilaterally, clear to auscultation and percussion. No rales, rhonchi or wheezes noted. No increased work of breathing, no retractions or nasal flaring. Abdomen/GI: Soft, non-tender, with normal bowel sounds. No distension or tympany. No guarding or rebound. No evidence of tenderness throughout. Back: No spinal tenderness. No costovertebral tenderness. Full range of motion. Skin: Warm, dry with normal turgor. Normal color with no rashes, no lesions, and no evidence of cellulitis. MS/ Extremity: Pulses equal, no cyanosis. Neurovascular intact. Full, normal range of motion. Neuro: Awake and alert, GCS 15, oriented to person, place, time, and situation. Cranial nerves II-XII grossly intact. Motor strength 5/5 in all extremities. Sensory grossly intact. Cerebellar exam normal. Normal gait. 19:03 Psych: Behavior/mood is cooperative, suicidal, Affect is calm, Oriented to person, place, time, Patient having thoughts of suicide. Plan for suicide is See HPI Memory is normal. Delusions/hallucinations are present and described as auditory hallucinations . Vital Signs: 18:40 BP 128 / 85; Pulse 149; Resp 18; Temp 99.6; Pulse Ox 97% on R/A; Weight 113.4 kg; jb4 Height 5 ft. 2 in. (157.48 cm); Pain 0/10; 18:55 BP 110 / 77; Pulse 128; Resp 18 S; Pulse Ox 97% on R/A; aa5 19:30 BP 110 / 77; Pulse 125; Resp 20 S; Pulse Ox 95% on R/A; jd3 21:20 BP 113 / 77; Pulse 120; Resp 18 S; Pulse Ox 96% on R/A; jd3 22:55 BP 112 / 87; Pulse 115; Resp 20; Pulse Ox 96% on R/A; oe 10/25 00:00 BP 123 / 94; Pulse 110; Resp 16 S; Pulse Ox 100% on R/A; jd3 02:59 BP 113 / 85; Pulse 102; Resp 20; Pulse Ox 96% on R/A; tl2 04:00 BP 117 / 80; Pulse 110; Resp 17 S; Pulse Ox 99% on R/A; jd3 07:50 BP 102 / 80; Pulse 103; Resp 10; Pulse Ox 100% on R/A; Pain 0/10; ch 09:44 BP 111 / 84; Pulse 94; Resp 18; Temp 97.8(O); Pulse Ox 97% on R/A; ch 11:57 BP 118 / 73; Pulse 94; Resp 14; Temp 97.8; Pulse Ox 99% on R/A; Pain 0/10; ch 12:59 BP 132 / 83; Pulse 96; Resp 14; Pulse Ox 99% on R/A; Pain 7/10; ch 14:13 BP 106 / 67; Pulse 106; Resp 12; Temp 98.3; Pulse Ox 99% on R/A; Pain 2/10; ch 15:08 BP 114 / 86; Pulse 98; Resp 15; Temp 98.3; Pulse Ox 99% on R/A; Pain 0/10; ch 10/24 18:40 Body Mass Index 45.73 (113.40 kg, 157.48 cm) jb4 07:50 pt sleeping in room ch MDM: 10/24 18:32 Patient medically screened. jr8 10/25 01:57 Data reviewed: vital signs, nurses notes, lab test result(s), EKG. Data interpreted: 8 Pulse oximetry: on room air is 100 %. Interpretation: normal. Counseling: I had a detailed discussion with the patient and/or guardian regarding: the historical points, exam findings, and any diagnostic results supporting the discharge/admit diagnosis, lab results. ED course: [facility] evaluated patient and recommends inpatient treatment . 13:11 Special discussion: spoke with psyche Dr. Hdez at [facility] at 1300 hrs. advised wa will call us back with acceptance after discussing the case with her superior. 16:43 Differential diagnosis: drug withdrawal. acute psychotic break, depression, suicide wa ideation. Response to treatment: the patient's symptoms have markedly improved after treatment. 10/24 18:33 Order name: Acetaminophen; Complete Time: 19:47 10/24 18:33 Order name: Basic Metabolic Panel; Complete Time: 19:47 [facility] 10/24 18:33 Order name: CBC with Diff; Complete Time: :34 [facility] 10/24 18:33 Order name: ETOH Level; Complete Time: :47 10/24 18:33 Order name: Hepatic Function; Complete Time: :47 10/24 18:33 Order name: PT-INR; Complete Time: :34 10/24 18:33 Order name: Ptt, Activated; Complete Time: 19:34 10/24 18:33 Order name: Salicylate; Complete Time: 19:34 10/24 18:33 Order name: Urine Drug Screen; Complete Time: :34 10/24 19:12 Order name: Urine Dipstick--Ancillary (enter results); Complete Time: 20:06 mb4 10/24 19:12 Order name: Urine --Ancillary (enter results); Complete Time: 20:06 mb4 10/25 00:03 Order name: ETOH Level; Complete Time: 01:25 jd3 10/24 18:33 Order name: Urine Test (obtain specimen); Complete Time: 19:01 10/24 18:33 Order name: EKG; Complete Time: 18:33 [facility] 10/24 18:33 Order name: EKG - Nurse/Tech; Complete Time: 19:10/24 18:33 Order name: IV Saline Lock; Complete Time: 19:10/24 18:33 Order name: Labs collected and sent; Complete Time: 19:10/24 18:33 Order name: Urine Dipstick-Ancillary (obtain specimen); Complete Time: 19: 10/25 08:08 Order name: Diet Finger Food; Complete Time: 08:09 ph Administered Medications: 10/24 19:10 Drug: NS 0.9% 1000 ml Route: IV; Rate: 1000 ml; Site: left antecubital; aa5 19:10 Drug: NS 0.9% 1000 ml Route: IV; Rate: 1000 ml; Site: left antecubital; aa5 19:10 Drug: Ativan 1 mg Route: IVP; Site: left antecubital; aa5 20:00 Follow up: Response: No adverse reaction [facility] 10/25 03:20 Drug: Ativan 1 mg Route: PO; jd3 08:10 Follow up: Response: No adverse reaction; Marked relief of symptoms ch 13:18 Drug: Tylenol 1000 mg Route: PO; ch 14:11 Follow up: Response: No adverse reaction; Marked relief of symptoms ch 13:18 Drug: Ativan 1 mg Route: PO; ch 14:11 Follow up: Response: No adverse reaction; Marked relief of symptoms ch Disposition: 10/26 08:26 Co-signature as Attending Physician, Cedrick Patel MD I agree with the assessment and wa plan of care. Disposition: 10/25/17 16:44 Transfer ordered to Psych Facility. Diagnosis is Suicidal Ideation. - Reason for transfer: Higher level of care. - Accepting physician is [facility]. - Condition is Stable. - Problem is an acute exacerbation. - Symptoms have improved. Signatures: Dispatcher [employer] Tejal Davila RN RN ch Calderon, Audri RN RN aa5 Sarkis Espinoza PA PA jr8 Es Coleman RN RN ph Bryson, James, RN RN jb4 Munir Quintanilla MD MD gs Appiah, William, MD MD wa Davies, Jonathon, RN RN jd3 Corrections: (The following items were deleted from the chart) 10/25 16:57 16:44 10/25/2017 16:44 Transfer ordered to Psych Facility. Diagnosis is Suicidal ph Ideation. Reason for transfer: Higher level of care. Accepting physician is [facility]. Condition is Stable. Problem is an acute exacerbation. Symptoms have improved. sarah
--- NOTE | 2017-10-25 16:45 | ER ---
Nurse's Notes [facility] Name: Jose E Burden Age: 37 yrs Sex: Female : 1980 Arrival Date: 10/24/2017 Time: 18:23 Bed 8 Private MD: Diagnosis: Suicidal Ideation Presentation: 10/24 18:25 Presenting complaint: EMS states: Pt reports wanting to jump in front of a moving car jb4 to commit suicide. Transition of care: patient was not received from another setting of care. Onset of symptoms is unknown. 18:25 Method Of Arrival: EMS: [facility] jb4 18:42 Risk Assessment: Do you want to hurt yourself or someone else? Patient reports jb4 desire/thoughts of hurting themselves or someone else. Provider notified. Initial Sepsis Screen: Does the patient meet any 2 criteria? HR > 90 bpm. Yes Does the patient have a suspected source of infection? No. Patient's initial sepsis screen is negative. Care prior to arrival: None. 18:42 Acuity: FANTA 2 jb4 Triage Assessment: 18:47 General: Appears in no apparent distress. uncomfortable, Behavior is calm, cooperative. jb4 Pain: Complains of pain in right foot Pain currently is 0 out of 10 on a pain scale. at worst was 7 out of 10 on a pain scale. Historical: - Allergies: 18:47 Ibuprofen; jb4 - Home Meds: 18:47 Trazodone Oral [Active]; unknown BP medication [Active]; Vistaril Oral [Active]; Zoloft jb4 Oral [Active]; - PMHx: 18:47 Chronic pain; Diabetes - NIDDM; Hypertension; Schizophrenia; Bipolar disorder; Insomnia;jb4 - Immunization history:: Adult Immunizations unknown. - Social history:: Smoking status: Patient uses tobacco products, denies chronic smoking, but will smoke occasionally, Patient uses alcohol, occasionally. street drugs, cocaine. - Ebola Screening: : No symptoms or risks identified at this time. Screenin:40 Abuse screen: Denies threats or abuse. Nutritional screening: No deficits noted. jb4 Tuberculosis screening: No symptoms or risk factors identified. Fall Risk None identified. Assessment: 18:48 General: Appears in no apparent distress. uncomfortable, Behavior is calm, cooperative, jb4 Pt reports wanting to commit suicide. States " my plan is to jump in front of a car." Is from a assisted. Reports taking cocaine at 0900, 1600. Reports hearing voices.. Pain: Complains of pain in right foot Pain does not radiate. Pain currently is 0 out of 10 on a pain scale. at worst was 7 out of 10 on a pain scale. Pain began Pain is chronic beginning 3 years ago. Neuro: Level of Consciousness is awake, alert, obeys commands, Oriented to person, place, time, situation. Cardiovascular: Patient's skin is warm and dry. Rhythm is sinus tachycardia. Respiratory: Airway is patent Respiratory effort is even, unlabored, Respiratory pattern is regular, symmetrical. GI: No signs and/or symptoms were reported involving the gastrointestinal system. : EENT: No signs and/or symptoms were reported regarding the EENT system. Derm: Skin is intact, Skin is dry, Skin is normal, Skin temperature is warm. Musculoskeletal: No signs and/or symptoms reported regarding the musculoskeletal system. 19:29 Reassessment: Patient appears in no apparent distress at this time. No changes from jd3 previously documented assessment. Patient and/or family updated on plan of care and expected duration. Pain level reassessed. Patient is alert, oriented x 3, equal unlabored respirations, skin warm/dry/pink. 20:00 Reassessment: Patient appears in no apparent distress at this time. No changes from jd3 previously documented assessment. Patient and/or family updated on plan of care and expected duration. Pain level reassessed. Patient is alert, oriented x 3, equal unlabored respirations, skin warm/dry/pink. pt resting in bed with eyes closed, even and unlabored respirations, no distress noted at this time, sitter at bedside. 21:00 Reassessment: Patient appears in no apparent distress at this time. No changes from jd3 previously documented assessment. Patient and/or family updated on plan of care and expected duration. Pain level reassessed. Patient is alert, oriented x 3, equal unlabored respirations, skin warm/dry/pink. 22:00 Reassessment: Patient appears in no apparent distress at this time. No changes from jd3 previously documented assessment. Patient and/or family updated on plan of care and expected duration. Pain level reassessed. Patient is alert, oriented x 3, equal unlabored respirations, skin warm/dry/pink. 23:00 Reassessment: Patient appears in no apparent distress at this time. No changes from jd3 previously documented assessment. Patient and/or family updated on plan of care and expected duration. Pain level reassessed. Patient is alert, oriented x 3, equal unlabored respirations, skin warm/dry/pink. 10/25 00:00 Reassessment: Patient appears in no apparent distress at this time. No changes from jd3 previously documented assessment. Patient and/or family updated on plan of care and expected duration. Pain level reassessed. Patient is alert, oriented x 3, equal unlabored respirations, skin warm/dry/pink. 01:00 Reassessment: Patient appears in no apparent distress at this time. No changes from jd3 previously documented assessment. Patient and/or family updated on plan of care and expected duration. Pain level reassessed. Patient is alert, oriented x 3, equal unlabored respirations, skin warm/dry/pink. 02:00 Reassessment: Patient appears in no apparent distress at this time. No changes from jd3 previously documented assessment. Patient and/or family updated on plan of care and expected duration. Pain level reassessed. Patient is alert, oriented x 3, equal unlabored respirations, skin warm/dry/pink. 03:00 Reassessment: Patient appears in no apparent distress at this time. No changes from jd3 previously documented assessment. Patient and/or family updated on plan of care and expected duration. Pain level reassessed. Patient is alert, oriented x 3, equal unlabored respirations, skin warm/dry/pink. 03:15 Reassessment: Patient appears in no apparent distress at this time. Patient and/or jd3 family updated on plan of care and expected duration. Pain level reassessed. Patient is alert, oriented x 3, equal unlabored respirations, skin warm/dry/pink. pt awake asking for medication to help with anxiety. provider notified, see MAR for new orders. 04:00 Reassessment: Patient appears in no apparent distress at this time. Patient and/or jd3 family updated on plan of care and expected duration. Pain level reassessed. Patient is alert, oriented x 3, equal unlabored respirations, skin warm/dry/pink. pt resting in bed with eyes closed, even and unlabored respirations, no distress noted at this time. sitter at bedside. 05:00 Reassessment: Patient appears in no apparent distress at this time. No changes from [facility] previously documented assessment. Patient and/or family updated on plan of care and expected duration. Pain level reassessed. Patient is alert, oriented x 3, equal unlabored respirations, skin warm/dry/pink. 06:00 Reassessment: Patient appears in no apparent distress at this time. No changes from [facility] previously documented assessment. Patient and/or family updated on plan of care and expected duration. Pain level reassessed. Patient is alert, oriented x 3, equal unlabored respirations, skin warm/dry/pink. 07:45 Reassessment: called [facility] for update on transfer status. "In the pile for ss review by the nurse" is reported by assessment desk. Will call back in one hour to check on status again. 07:49 Reassessment: Patient appears in no apparent distress at this time. Patient and/or family updated on plan of care and expected duration. Pain level reassessed. pt is sleeping in room, no s/s of distress. 08:45 Reassessment: Patient appears in no apparent distress at this time. No changes from previously documented assessment. 09:40 Reassessment: Patient appears in no apparent distress at this time. Patient and/or family updated on plan of care and expected duration. Pain level reassessed. Patient is alert, oriented x 3, equal unlabored respirations, skin warm/dry/pink. pt eats breakfast, then returns to sleep. pt states she feels better, but is tired. pt asked if she wants to harm herself or others right now. pt states if she leaves she still wants to kill herself. 10:40 Reassessment: Patient appears in no apparent distress at this time. No changes from previously documented assessment. Patient and/or family updated on plan of care and expected duration. Pain level reassessed. 11:57 Reassessment: Patient appears in no apparent distress at this time. No changes from previously documented assessment. Patient and/or family updated on plan of care and expected duration. Pain level reassessed. Patient is alert, oriented x 3, equal unlabored respirations, skin warm/dry/pink. pt eating lunch, no s/s of distress pt verb understanding on wait for acceptance facility. sitter in room with pt. 12:59 Reassessment: Patient appears in no apparent distress at this time. Dr. Patel calls to give to report, leaves a message. pt state she needs something for anxiety and pain, her back and hips hurt, and she feels very restless and her thought are racing. pt asked if she is having any thoughts of harming herself or others, pt states yes. erp notified, new orders obtained. 15:08 Reassessment: Patient appears in no apparent distress at this time. Patient and/or ch family updated on plan of care and expected duration. Pain level reassessed. Patient is alert, oriented x 3, equal unlabored respirations, skin warm/dry/pink. 15:09 Reassessment: Nurse to nurse report given to Nurse At [facility]. awaiting administrative approval. Psych: 10/24 18:58 Subjective: Patient's mood is hopeless, Hallucinations are auditory. Objective: Patient jb4 is cooperative, Speech is normal, Affect is appropriate. Interventions: Removed personal items and placed in bag. Patient placed in hospital gown. Searched person for dangerous items. Urine collected and sent for urine drug test. Belonging list filled out. Suicide Risk Assessment: Sad Person Scale: Sex of patient: Female: Score 0 points. Age of patient: Score 0 point if patient falls outside of specified age parameters. Depression: Score 1 point if signs of depression are present. Previous Attempt: Score 1 point if patient has previously attempted suicide. Substance Abuse: Score 1 point if patient abuses alcohol or drugs. Rational Thinking: Score 1 point if patient is lacking rational thinking. Social Support: Score 1 point if social support is lacking and/or unavailable. Organized Plan: Score 1 point if patient had a plan in place. Relationship: Score 1 point if patient is , , , or for a single male Chronic Sickness: Score 1 point if patient has illness, chronic, debilitating, or severe. TOTAL POINTS: If total points are 7-10, the proposed clinical action is to hospitalize or commit. Implement suicide precautions. Safety Checks: Personal items have been removed. Door is open. No visitors are present at this time. Sitter is with patient. Pt is on cardiac monitoring. Patient uses cocaine, Last use was 3 hours ago. Vital Signs: 18:40 BP 128 / 85; Pulse 149; Resp 18; Temp 99.6; Pulse Ox 97% on R/A; Weight 113.4 kg; jb4 Height 5 ft. 2 in. (157.48 cm); Pain 0/10; 18:55 BP 110 / 77; Pulse 128; Resp 18 S; Pulse Ox 97% on R/A; aa5 19:30 BP 110 / 77; Pulse 125; Resp 20 S; Pulse Ox 95% on R/A; jd3 21:20 BP 113 / 77; Pulse 120; Resp 18 S; Pulse Ox 96% on R/A; jd3 22:55 BP 112 / 87; Pulse 115; Resp 20; Pulse Ox 96% on R/A; oe 10/25 00:00 BP 123 / 94; Pulse 110; Resp 16 S; Pulse Ox 100% on R/A; jd3 02:59 BP 113 / 85; Pulse 102; Resp 20; Pulse Ox 96% on R/A; tl2 04:00 BP 117 / 80; Pulse 110; Resp 17 S; Pulse Ox 99% on R/A; jd3 07:50 BP 102 / 80; Pulse 103; Resp 10; Pulse Ox 100% on R/A; Pain 0/10; ch 09:44 BP 111 / 84; Pulse 94; Resp 18; Temp 97.8(O); Pulse Ox 97% on R/A; ch 11:57 BP 118 / 73; Pulse 94; Resp 14; Temp 97.8; Pulse Ox 99% on R/A; Pain 0/10; ch 12:59 BP 132 / 83; Pulse 96; Resp 14; Pulse Ox 99% on R/A; Pain 7/10; ch 14:13 BP 106 / 67; Pulse 106; Resp 12; Temp 98.3; Pulse Ox 99% on R/A; Pain 2/10; ch 15:08 BP 114 / 86; Pulse 98; Resp 15; Temp 98.3; Pulse Ox 99% on R/A; Pain 0/10; ch 10/24 18:40 Body Mass Index 45.73 (113.40 kg, 157.48 cm) jb4 07:50 pt sleeping in room ch ED Course: 10/24 18:23 Patient arrived in ED. aj 18:25 Deondre Callahan, HERMES is Primary Nurse. jb4 18:32 Sarkis Espinoza PA is PHCP. jr8 18:32 Cedrick Patel MD is Attending Physician. jr8 18:42 Triage completed. jb4 18:45 Safety Checks: Personal items have been removed. The door is open or patient has been jb4 placed in a hallway bed/chair. Sitter present at this time. 18:45 Arm band placed on left wrist. jb4 18:45 Patient has correct armband on for positive identification. Placed in gown. Bed in low jb4 position. Side rails up X2. table games floor supervisor on. Pulse ox on. NIBP on. 18:55 Initial lab(s) drawn, by me, sent to lab. Inserted saline lock: 20 gauge in left aa5 antecubital area, using aseptic technique. Blood collected. 18:57 Urine collected: clean catch specimen, clear. aa5 19:00 Safety Checks: Personal items have been removed. The door is open or patient has been jb4 placed in a hallway bed/chair. Sitter present at this time. 19:00 Safety checks: Items removed: yes. Door open/sign placed on door: yes. Family/friend oe present: no. Sitter present: Yes. 19:05 Report given to HERMES Khanna. jb4 19:15 Safety Checks: Personal items have been removed. The door is open or patient has been jb4 placed in a hallway bed/chair. Sitter present at this time. 19:15 Safety checks: Items removed: yes. Door open/sign placed on door: yes. Family/friend oe present: no. Sitter present: Yes. 19:28 Primary Nurse role handed off by Deondre Callahan RN jd3 19:28 Shawn Otero RN is Primary Nurse. jd3 19:29 Warm blanket given. Diet tray given. PO fluids given. jd3 19:30 Safety Checks: Personal items have been removed. The door is open or patient has been jd3 placed in a hallway bed/chair. There are no family/friend visitors at this time Sitter present at this time. 19:30 Safety checks: Items removed: yes. Door open/sign placed on door: yes. Family/friend oe present: no. Sitter present: Yes. 19:45 Safety Checks: Personal items have been removed. The door is open or patient has been jd3 placed in a hallway bed/chair. There are no family/friend visitors at this time Sitter present at this time. 19:45 Safety checks: Items removed: yes. Door open/sign placed on door: yes. Family/friend oe present: no. Sitter present: Yes. 20:00 Safety Checks: Personal items have been removed. The door is open or patient has been jd3 placed in a hallway bed/chair. There are no family/friend visitors at this time Sitter present at this time. 20:00 Safety checks: Items removed: yes. Door open/sign placed on door: yes. Family/friend oe present: no. Sitter present:. 20:15 Safety checks: Items removed: yes. Door open/sign placed on door: yes. Family/friend oe present: no. Sitter present: Yes. 20:30 Safety checks: Items removed: yes. Door open/sign placed on door: yes. Family/friend oe present: no. Sitter present: Yes. 20:45 Safety checks: Items removed: yes. Door open/sign placed on door: yes. Family/friend oe present: no. Sitter present: Yes. 21:00 Safety checks: Items removed: yes. Door open/sign placed on door: yes. Family/friend oe present: no. Sitter present: Yes. 21:15 Safety checks: Items removed: yes. Door open/sign placed on door: yes. Family/friend oe present: no. Sitter present: Yes. 21:30 Safety checks: Items removed: yes. Door open/sign placed on door: yes. Family/friend oe present: no. Sitter present: Yes. 21:45 Safety checks: Items removed: yes. Door open/sign placed on door: yes. Family/friend oe present: no. Sitter present: Yes. 22:15 Safety checks: Items removed: yes. Door open/sign placed on door: yes. Family/friend oe present: no. Sitter present: Yes. 22:30 Safety checks: Items removed: yes. Door open/sign placed on door: yes. Family/friend oe present: no. Sitter present: Yes. 22:45 Safety checks: Items removed: yes. Door open/sign placed on door: yes. Family/friend oe present: no. Sitter present:. 23:00 Safety Checks: Personal items have been removed. The door is open or patient has been jd3 placed in a hallway bed/chair. There are no family/friend visitors at this time Sitter present at this time. 23:15 Safety Checks: Personal items have been removed. The door is open or patient has been jd3 placed in a hallway bed/chair. There are no family/friend visitors at this time Sitter present at this time. 23:30 Safety Checks: Personal items have been removed. The door is open or patient has been jd3 placed in a hallway bed/chair. There are no family/friend visitors at this time Sitter present at this time. 23:45 Safety Checks: Personal items have been removed. The door is open or patient has been jd3 placed in a hallway bed/chair. There are no family/friend visitors at this time Sitter present at this time. 10/25 00:00 Safety Checks: Personal items have been removed. The door is open or patient has been jd3 placed in a hallway bed/chair. There are no family/friend visitors at this time Sitter present at this time. 00:15 Safety Checks: Personal items have been removed. The door is open or patient has been jd3 placed in a hallway bed/chair. There are no family/friend visitors at this time Sitter present at this time. 00:30 Safety Checks: Personal items have been removed. The door is open or patient has been jd3 placed in a hallway bed/chair. There are no family/friend visitors at this time Sitter present at this time. 00:45 Safety Checks: Personal items have been removed. The door is open or patient has been jd3 placed in a hallway bed/chair. There are no family/friend visitors at this time Sitter present at this time. 01:00 Safety Checks: Personal items have been removed. The door is open or patient has been jd3 placed in a hallway bed/chair. There are no family/friend visitors at this time Sitter present at this time. 01:15 Safety Checks: Personal items have been removed. The door is open or patient has been jd3 placed in a hallway bed/chair. There are no family/friend visitors at this time Sitter present at this time. 01:30 Safety Checks: Personal items have been removed. The door is open or patient has been jd3 placed in a hallway bed/chair. There are no family/friend visitors at this time Sitter present at this time. 01:45 Safety Checks: Personal items have been removed. The door is open or patient has been jd3 placed in a hallway bed/chair. There are no family/friend visitors at this time Sitter present at this time. 02:00 Safety Checks: Personal items have been removed. The door is open or patient has been jd3 placed in a hallway bed/chair. There are no family/friend visitors at this time Sitter present at this time. 02:15 Safety Checks: Personal items have been removed. The door is open or patient has been jd3 placed in a hallway bed/chair. There are no family/friend visitors at this time Sitter present at this time. 02:30 Safety Checks: Personal items have been removed. The door is open or patient has been jd3 placed in a hallway bed/chair. There are no family/friend visitors at this time Sitter present at this time. 02:45 Safety Checks: Personal items have been removed. The door is open or patient has been jd3 placed in a hallway bed/chair. There are no family/friend visitors at this time Sitter present at this time. 03:00 Safety Checks: Personal items have been removed. The door is open or patient has been jd3 placed in a hallway bed/chair. There are no family/friend visitors at this time Sitter present at this time. 03:15 Safety Checks: Personal items have been removed. The door is open or patient has been jd3 placed in a hallway bed/chair. There are no family/friend visitors at this time Sitter present at this time. 03:30 Safety Checks: Personal items have been removed. The door is open or patient has been jd3 placed in a hallway bed/chair. There are no family/friend visitors at this time Sitter present at this time. 03:45 Safety Checks: Personal items have been removed. The door is open or patient has been jd3 placed in a hallway bed/chair. There are no family/friend visitors at this time Sitter present at this time. 04:00 Safety Checks: Personal items have been removed. The door is open or patient has been jd3 placed in a hallway bed/chair. There are no family/friend visitors at this time Sitter present at this time. 04:15 Safety Checks: Personal items have been removed. The door is open or patient has been jd3 placed in a hallway bed/chair. There are no family/friend visitors at this time Sitter present at this time. 04:30 Safety Checks: Personal items have been removed. The door is open or patient has been jd3 placed in a hallway bed/chair. There are no family/friend visitors at this time Sitter present at this time. 04:45 Safety Checks: Personal items have been removed. The door is open or patient has been jd3 placed in a hallway bed/chair. There are no family/friend visitors at this time Sitter present at this time. 05:00 Safety Checks: Personal items have been removed. The door is open or patient has been jd3 placed in a hallway bed/chair. There are no family/friend visitors at this time Sitter present at this time. 05:15 Safety Checks: Personal items have been removed. The door is open or patient has been jd3 placed in a hallway bed/chair. There are no family/friend visitors at this time Sitter present at this time. 05:30 Safety Checks: Personal items have been removed. The door is open or patient has been jd3 placed in a hallway bed/chair. There are no family/friend visitors at this time Sitter present at this time. 05:45 Safety Checks: Personal items have been removed. The door is open or patient has been jd3 placed in a hallway bed/chair. 06:00 Safety Checks: Personal items have been removed. The door is open or patient has been jd3 placed in a hallway bed/chair. There are no family/friend visitors at this time Sitter present at this time. 06:15 Safety Checks: Personal items have been removed. The door is open or patient has been jd3 placed in a hallway bed/chair. There are no family/friend visitors at this time Sitter present at this time. 06:30 Safety Checks: Personal items have been removed. The door is open or patient has been jd3 placed in a hallway bed/chair. There are no family/friend visitors at this time Sitter present at this time. 06:45 Safety Checks: Personal items have been removed. The door is open or patient has been jd3 placed in a hallway bed/chair. There are no family/friend visitors at this time Sitter present at this time. 07:00 Safety Checks: Personal items have been removed. The door is open or patient has been jd3 placed in a hallway bed/chair. There are no family/friend visitors at this time Sitter present at this time. 07:15 Safety Checks: Personal items have been removed. The door is open or patient has been ch placed in a hallway bed/chair. There are no family/friend visitors at this time Sitter present at this time. 07:30 Safety Checks: Personal items have been removed. The door is open or patient has been ch placed in a hallway bed/chair. There are no family/friend visitors at this time Sitter present at this time. 07:45 Safety Checks: Personal items have been removed. The door is open or patient has been ch placed in a hallway bed/chair. There are no family/friend visitors at this time Sitter present at this time. 08:00 Safety Checks: Personal items have been removed. The door is open or patient has been ch placed in a hallway bed/chair. There are no family/friend visitors at this time Sitter present at this time. 08:11 Primary Nurse role handed off by Shawn Otero RN 08:[address], HERMES is Primary Nurse. 08:11 [facility] denied patient. mb4 08:15 Safety Checks: Personal items have been removed. The door is open or patient has been ch placed in a hallway bed/chair. There are no family/friend visitors at this time Sitter present at this time. 08:30 Safety Checks: Personal items have been removed. The door is open or patient has been ch placed in a hallway bed/chair. There are no family/friend visitors at this time Sitter present at this time. 08:45 Safety Checks: Personal items have been removed. The door is open or patient has been ch placed in a hallway bed/chair. There are no family/friend visitors at this time Sitter present at this time. 08:45 No provider procedures requiring assistance completed. 09:00 Safety Checks: Personal items have been removed. The door is open or patient has been ch placed in a hallway bed/chair. There are no family/friend visitors at this time Sitter present at this time. 09:15 Safety Checks: Personal items have been removed. The door is open or patient has been ch placed in a hallway bed/chair. There are no family/friend visitors at this time Sitter present at this time. 09:15 Contact with [facility] to initiate patient transfer. Beds are available per contact, radhika Joyce, at [facility]. Maria Del Carmen requested exclusionary forms, labs, and patient chart to be faxed to [phone]. 09:30 Safety Checks: Personal items have been removed. The door is open or patient has been ch placed in a hallway bed/chair. There are no family/friend visitors at this time Sitter present at this time. 09:45 Safety Checks: Personal items have been removed. The door is open or patient has been ch placed in a hallway bed/chair. There are no family/friend visitors at this time Sitter present at this time. 09:45 Patient stated she was voluntary and wanted further medical treatment; patient mb4 signature on exclusionary form (two pages) obtained. Forms, labs, and patient chart faxed to [facility]. 09:57 Fax to [facility] at rejected. Paperwork faxed to [facility] [phone]. 10:00 Safety Checks: Personal items have been removed. The door is open or patient has been ch placed in a hallway bed/chair. There are no family/friend visitors at this time Sitter present at this time. 10:08 Called Maria Del Carmen from [facility] to check on fax status after [id number] line was denied. She mb4 asked that the 4011 line be reattempted. Paperwork faxed to [phone]. 10:15 Safety Checks: Personal items have been removed. The door is open or patient has been ch placed in a hallway bed/chair. There are no family/friend visitors at this time Sitter present at this time. 10:30 Safety Checks: Personal items have been removed. The door is open or patient has been ch placed in a hallway bed/chair. There are no family/friend visitors at this time Sitter present at this time. 10:45 Safety Checks: Personal items have been removed. The door is open or patient has been ch placed in a hallway bed/chair. There are no family/friend visitors at this time Sitter present at this time. 11:00 Safety Checks: Personal items have been removed. The door is open or patient has been ch placed in a hallway bed/chair. There are no family/friend visitors at this time Sitter present at this time. 11:15 Safety Checks: Personal items have been removed. The door is open or patient has been ch placed in a hallway bed/chair. There are no family/friend visitors at this time Sitter present at this time. 11:30 Safety Checks: Personal items have been removed. The door is open or patient has been ch placed in a hallway bed/chair. There are no family/friend visitors at this time Sitter present at this time. 11:45 Safety Checks: Personal items have been removed. The door is open or patient has been ch placed in a hallway bed/chair. There are no family/friend visitors at this time Sitter present at this time. 11:45 [facility] declined patient based on previous record of aggression. mb4 11:55 [facility] contacted to initiate patient transfer. mb4 12:00 Safety Checks: Personal items have been removed. The door is open or patient has been ch placed in a hallway bed/chair. There are no family/friend visitors at this time Sitter present at this time. 12:15 Safety Checks: Personal items have been removed. The door is open or patient has been ch placed in a hallway bed/chair. There are no family/friend visitors at this time Sitter present at this time. 12:30 Safety Checks: Personal items have been removed. The door is open or patient has been ch placed in a hallway bed/chair. There are no family/friend visitors at this time Sitter present at this time. 12:33 Patient documents faxed to [facility] at . mb4 12:45 Safety Checks: Personal items have been removed. The door is open or patient has been ch placed in a hallway bed/chair. There are no family/friend visitors at this time Sitter present at this time. 12:45 [facility] called and asked us to please fax over most recent vitals. mb4 12:50 connected the nurse from [facility] with ED nurse to do Nurse to Nurse. mb4 13:00 Safety Checks: Personal items have been removed. The door is open or patient has been ch placed in a hallway bed/chair. There are no family/friend visitors at this time Sitter present at this time. 13:15 Dr. Hdez from [facility] called to inform that she has accepted the patient. eb 13:57 [facility] granted clearance for nurse to nurse at . eb 15:30 [facility] contacted to check the status of administrative approval. mb4 16:54 IV discontinued, intact, bleeding controlled, No redness/swelling at site. Pressure em1 dressing applied. Administered Medications: 10/24 19:10 Drug: NS 0.9% 1000 ml Route: IV; Rate: 1000 ml; Site: left antecubital; aa5 19:10 Drug: NS 0.9% 1000 ml Route: IV; Rate: 1000 ml; Site: left antecubital; aa5 19:10 Drug: Ativan 1 mg Route: IVP; Site: left antecubital; aa5 20:00 Follow up: Response: No adverse reaction jd3 10/25 03:20 Drug: Ativan 1 mg Route: PO; jd3 08:10 Follow up: Response: No adverse reaction; Marked relief of symptoms ch 13:18 Drug: Tylenol 1000 mg Route: PO; ch 14:11 Follow up: Response: No adverse reaction; Marked relief of symptoms ch 13:18 Drug: Ativan 1 mg Route: PO; ch 14:11 Follow up: Response: No adverse reaction; Marked relief of symptoms ch Outcome: 16:44 ER care complete, transfer ordered by . wa 16:57 Patient left the ED. ph Signatures: Tejal Lane RN RN ch Myers, Amanda RN Facundo So em1 Laura Junior RN RN aa5 Nuris Ardon RN RN Sarkis Espinoza PA PA jr8 Es Coleman RN RN Monica Rosario RN HERMES tl2 Deondre Callahan RN RN jb4 Michael Jimenez William, MD MD wa Davies, Jonathon, RN RN jd3 Joleen Wells Mackenzie mb4 Corrections: (The following items were deleted from the chart) 10/24 18:53 18:48 General: Appears in no apparent distress. uncomfortable, Behavior is calm, jb4 cooperative, jb4 19:21 18:48 Pain: Complains of pain in right foot Pain does not radiate. Pain currently is 0 jb4 out of 10 on a pain scale. at worst was 7 out of 10 on a pain scale. jb4 22:49 21:47 Safety checks: Items removed: yes. Door open/sign placed on door: yes. oe Family/friend present: no. Sitter present: Yes. oe 10/25 00:26 00:24 BP 123 / 64; Pulse 110bpm; Resp 16bpm; Spontaneous; Pulse Ox 100% RA; jd3 jd3 03:00 Reassessment: Patient appears in no apparent distress at this time. Patient jd3 and/or family updated on plan of care and expected duration. Pain level reassessed. Patient is alert, oriented x 3, equal unlabored respirations, skin warm/dry/pink. pt awake asking for medication to help with anxiety. provider notified, see MAR for new orders. jd3 03:00 Reassessment: Patient appears in no apparent distress at this time. No changes jd3 from previously documented assessment. Patient and/or family updated on plan of care and expected duration. Pain level reassessed. Patient is alert, oriented x 3, equal unlabored respirations, skin warm/dry/pink. jd3 09:42 08:45 BP 111 / 84; Pulse 94bpm; Resp 18bpm; Pulse Ox 97% RA; ch ch 09:44 08:45 BP 111 / 84; Pulse 94bpm; Resp 18bpm; Pulse Ox 97% RA; Temp 97.8F Oral; ch 15:56 15:54 [facility] contacted to check the status of administrative approval mb4 mb4
== END 2017-10-25 16:57 ==
LOC: ER 18:17
DX: R45.851 Suicidal ideations (principal); Z91.14 Patient's other noncompliance with medication regimen; E11.9 Type 2 diabetes mellitus without complications; I10 Essential (primary) hypertension; F20.9 Schizophrenia, unspecified; F31.9 Bipolar disorder, unspecified; G47.00 Insomnia, unspecified; Z72.0 Tobacco use
CPT/HCPCS: 36415; 80048; 80076; 80307; 80320; 80329; 81003; 81025; 85025; 85610; 85730; 93005; 96374; 99285; J7030